=== PATIENT | male | born 1935 | race Caucasian/White ===

== ENCOUNTER 2023-11-23 13:58 | Outpatient (CLI) | payer MEDICARE ==
--- NOTE | 2023-11-23 14:52 | XRAY Report ---
PROCEDURE: Chest 2V INDICATIONS: ACUTE COUGH TECHNIQUE: 2 views of the chest were acquired. COMPARISON: None. FINDINGS: Surgical changes and devices: None. Lungs and pleura: There is consolidation in the right upper lobe. No drainable pleural effusion. Mediastinum: Normal heart size. Bones and chest wall: Degenerative changes. IMPRESSION: Consolidation in the right upper lobe suspicious for pneumonia. No drainable pleural effusions. Consider future imaging surveillance to assess for resolution. Reviewed by: Jose Elizalde MD on 11/23/2023 2:51 PM PDT Approved by: Jose Elizalde MD on 11/23/2023 2:51 PM PDT Station ID: [id number]
== END 2023-11-23 23:59 | disposition home or self-care (01) ==
LOC: DI.N 13:58
PROVIDERS: ATTEND Physician Assistant Medical
DX: R05.1 Acute cough (principal); R91.8 Other nonspecific abnormal finding of lung field

== ENCOUNTER 2023-12-30 14:33 | Outpatient (CLI) | payer MEDICARE | END 2023-12-30 23:59 | disposition short-term general hospital (02) | LOC: EMS 14:33 | DX: R11.2 Nausea with vomiting, unspecified (principal); R53.1 Weakness | CPT/HCPCS: A0425; A0427 ==